=== PATIENT | female | born 1945 | race American Indian/Alaskan Native ===

== ENCOUNTER 2016-11-16 17:22 | Inpatient (IN) | payer MEDICARE, OTHER ==
[2016-11-16] MEDS ORDERED: Piperacillin/Tazobact 3.375 gm 100 ML IV STA (18:20)
[2016-11-16] MEDS ORDERED: Enoxaparin 40 mg Syringe SC STA (18:21)
--- NOTE | 2016-11-16 18:22 | C.PDOC ---
History Of Present Illness 70 year old patient, with a past medical history of hypertension and colonic polyps, presents to the emergency department complaining of left lower leg pain and swelling for the past 3 days. Patient states he struck his left tibia against something. She has noticed erythema spreading since then. Patient denies fever, chills, nausea, or vomiting. Time Seen by Provider: 11/16/16 18:15 Chief Complaint (Nursing): Lower Extremity Problem/Injury History Per: Patient History/Exam Limitations: no limitations Onset/Duration Of Symptoms: Days (3) Current Symptoms Are (Timing): Still Present Severity: Moderate Pain Scale Rating Of: 4 Recent travel outside of the [place]: No Past Medical History Reviewed: Historical Data, Nursing Documentation, Vital Signs Vital Signs: Last Vital Signs Temp 97.9 F 11/16/16 20:02 Pulse 89 11/16/16 20:02 Resp 18 11/16/16 20:02 BP 156/76 H 11/16/16 20:02 Pulse Ox 96 11/16/16 20:02 - Medical History PMH: Asthma (PT STATES THEY ARE TREATING FOR ASBESTOS EXPOSURE), Colonic Polyps , [facility] CLOSED ENDOSCOPIC BIOPSY OF LARGE INTESTINE (11/22/14) ESOPHAGOGASTRODUODENOSCOPY [EGD] W/CLOSED BIOPSY (11/26/14) Family History: States: Unknown Family Hx - Social History Hx Alcohol Use: No Hx Substance Use: No Review Of Systems Except As Marked, All Systems Reviewed And Found Negative. Constitutional: Negative for: Fever, Chills Gastrointestinal: Negative for: Nausea, Vomiting Musculoskeletal: Positive for: Leg Pain (left lower) Physical Exam - Physical Exam Appears: Non-toxic, No Acute Distress Skin: Warm, Dry Head: Atraumatic, Normacephalic Neck: Normal ROM, Supple Chest: Symmetrical Cardiovascular: Rhythm Regular Respiratory: Normal Breath Sounds, No Rales, No Rhonchi, No Wheezing Gastrointestinal/Abdominal: Soft, No Tenderness, Other (morbidly obese) Back: Normal Inspection, No CVA Tenderness Extremity: Normal ROM, No Pedal Edema, No Calf Tenderness, Capillary Refill (<2 seconds), No Deformity, No Swelling, Other (obese lower extremities; small wound to the left anterior tibia mid shaft with spreading erythema to about 20 cm of ankle to below the knee) ED Course And Treatment - Laboratory Results Result Diagrams: 11/16/16 18:25 11/16/16 18:25 Lab Interpretation: Abnormal (+ mild leukocytosis) ECG: Interpreted By Me ECG Rhythm: Sinus Rhythm ECG Interpretation: Normal Rate From EC O2 Sat by Pulse Oximetry: 96 (room air) Pulse Ox Interpretation: Normal - Radiology CXR: Interpreted by Me CXR Interpretation: Yes: No Acute Disease - Other Rad L tib/fib X-Ray: Interpreted by Me (no fb/gas/fx) Progress Note: Plan: -EKG. -Labs. -Chest x-ray. -Lovenox, Toradol, Zosyn. 18:[address] Daniels who is aware of the case and plan. He will admit the patient. Reevaluation Time: 19:00 Reassessment Condition: Improved - Physician Consult Information Outcome Of Conversation: d/w Dr. Daniels @ [phone] Medical Decision Making Medical Decision Making: cellulitis of L lower leg started from small anterior tib wound 3 days ago. no fx/fb/gas empirically started on Zosyn Lovenox 100 SQ given in case of underlying DVT: US in AM Disposition Doctor Will See Patient In The: Hospital Counseled Patient/Family Regarding: Studies Performed, Diagnosis - Disposition Disposition: HOSPITALIZED Disposition Time: 18:22 Condition: GOOD - Clinical Impression Clinical Impression: Cellulitis of leg, left - Scribe Statement The provider has reviewed the documentation as recorded by the Yadira Jo Provider Attestation: All medical record entries made by the Yaniqueibe were at my direction and personally dictated by me. I have reviewed the chart and agree that the record accurately reflects my personal performance of the history, physical exam, medical decision making, and the department course for this patient. I have also personally directed, reviewed, and agree with the discharge instructions and disposition.
[2016-11-16] MEDS ORDERED: Enoxaparin 60 mg Syringe ONE (18:26)
[2016-11-16] MEDS ORDERED: Enoxaparin 40 mg Syringe ONE (18:26)
[2016-11-16] MEDS ORDERED: Piperacillin/Tazobact 3.375 gm 100 ML IVPB ONE (18:27)
[2016-11-16 18:31] LABS: BASO % 0.3 % (0.0-2.0); EOS # 0.7 K/uL (0.0-0.7); EOS % 5.9 % (0.0-4.0); HEMATOCRIT 38.7 % (34.0-47.0); LYMPH # 1.8 K/uL (1.0-4.3); LYMPH % 15.4 % (20.0-40.0); MEAN CORPUSCULAR HGB CONC 31.7 g/dL (33.0-37.0); MEAN PLATELET VOLUME 10.1 fL (7.2-11.7); MONO # 0.9 K/uL (0.0-0.8); RED CELL DISTRIBUTION WIDTH 15.2 % (11.5-14.5); WHITE BLOOD COUNT 11.6 K/uL (4.8-10.8)
[2016-11-16 18:40] LABS: CHLORIDE 105 mmol/L (98-107); POTASSIUM 4.5 mmol/L (3.6-5.2); SODIUM 143 mmol/L (132-148)
[2016-11-16 18:42] LABS: GFR AFRICAN-AMERICAN > 60
[2016-11-16 18:43] LABS: ALB/GLOB RATIO 1.1 (1.0-2.1); ALKALINE PHOSPHATASE 103 U/L (38-126); ALT/SGPT 14 U/L (9-52); AST/SGOT 32 U/L (14-36); BILIRUBIN,TOTAL 0.9 mg/dL (0.2-1.3); BLOOD UREA NITROGEN 19 mg/dL (7-17); CARBON DIOXIDE 29 mmol/L (22-30); GLUCOSE,RANDOM 94 mg/dL (65-105); TOTAL PROTEIN 7.3 g/dL (6.3-8.3)
[2016-11-16 18:44] LABS: CALCIUM 8.3 mg/dl (8.6-10.4)
[2016-11-16 19:04] LABS: INR 1.1
[2016-11-16 23:23] VITALS: BMI 42.9
[2016-11-17] MEDS: Piperacill/Tazo 3.375gm in Dex 3.375 GM/50 ML BAG IVPB SCH ×3 (00:15→13:17)
[2016-11-17] MEDS: Enoxaparin 40 mg Syringe SC SCH (09:54)
[2016-11-17] MEDS: Pantoprazole 40 mg EC Tab PO SCH (09:55)
--- NOTE | 2016-11-17 09:59 | RAD ---
PROCEDURE: Radiographs of the left tibia and fibula. HISTORY: anterior lesion, ? gas/fb COMPARISON: None available. TECHNIQUE: Frontal and lateral views obtained. FINDINGS: BONES: No fracture or destructive lesion. JOINT SPACES: Unremarkable. OTHER FINDINGS: There is subcutaneous edema. No evidence of gas IMPRESSION: Unremarkable radiographs of the left tibia and fibula.
--- NOTE | 2016-11-17 10:00 | RAD ---
PROCEDURE: CHEST RADIOGRAPH, 1 VIEW HISTORY: SOB COMPARISON: None available. FINDINGS: LUNGS: Clear. PLEURA: No pneumothorax or pleural fluid seen. CARDIOVASCULAR: Normal. OSSEOUS STRUCTURES: No significant abnormalities. VISUALIZED UPPER ABDOMEN: Normal. OTHER FINDINGS: None. IMPRESSION: No active disease.
--- NOTE | 2016-11-17 11:42 | CP.PCM.PN ---
Subjective - Date & Time of Evaluation Date of Evaluation: 11/17/16 Time of Evaluation: 09:30 - Subjective Subjective: Medicine Progress Notes Patient seen and examined. Patient states that she feels well today. She came in yesterday for cellulitis after she scraped her tibia on a piece of metal 4 days ago. Since then she noticed that her leg started to become red and painful so she came to the ED. Today the patient states that the cellulitis has already improved since admission. She denies fever, chills, nausea, vomiting, chest pain, shortness of breath and palpitations. Objective - Vital Signs/Intake and Output Vital Signs (last 24 hours): Temp Pulse Resp BP Pulse Ox 97.7 F 78 18 148/77 95 11/17/16 08:00 11/17/16 08:00 11/17/16 08:00 11/17/16 08:00 11/17/16 08:00 - Medications Medications: Current Medications Atenolol (Tenormin) 50 mg PO DAILY [facility] Last Admin: 11/17/16 09:55 Dose: 50 mg Enoxaparin Sodium (Lovenox) 40 mg SC DAILY [facility] Last Admin: 11/17/16 09:54 Dose: 40 mg Piperacillin Sod/Tazobactam Sod (Zosyn 3.375 Gm Iv Premix) 3.375 gm in 50 mls @ 100 mls/hr IVPB Q6H [facility] Last Admin: 11/17/16 05:34 Dose: 100 mls/hr Oxycodone/Acetaminophen (Percocet 5/325 Mg Tab) 1 tab PO Q4H PRN PRN Reason: Pain, moderate (4-7) Stop: 11/19/16 22:31 Pantoprazole Sodium (Protonix Ec Tab) 40 mg PO DAILY [facility] Last Admin: 11/17/16 09:55 Dose: 40 mg - Labs Labs: 11/16/16 18:25 11/16/16 18:25 PT 12.0 SECONDS (9.7-12.2) 11/16/16 18:48 INR 1.1 11/16/16 18:48 APTT 31 SECONDS (21-34) 11/16/16 18:48 - Constitutional Appears: Non-toxic, No Acute Distress - Head Exam Head Exam: ATRAUMATIC, NORMOCEPHALIC - Eye Exam Eye Exam: EOMI, Normal appearance Pupil Exam: NORMAL ACCOMODATION - ENT Exam ENT Exam: Mucous Membranes Moist - Neck Exam Neck Exam: Normal Inspection - Respiratory Exam Respiratory Exam: Clear to Ausculation Bilateral, NORMAL BREATHING PATTERN. absent: Rhonchi, Wheezes, Respiratory Distress - Cardiovascular Exam Cardiovascular Exam: REGULAR RHYTHM, +S1, +S2 - GI/Abdominal Exam GI & Abdominal Exam: Soft, Normal Bowel Sounds - Extremities Exam Extremities Exam: Pedal Edema (bilateral 1+ pitting edema ) Additional comments: Left tibia scab with erythema down to ankle - Neurological Exam Neurological Exam: Alert, Awake, Normal Gait, Oriented x3 - Psychiatric Exam Psychiatric exam: Normal Affect, Normal Mood - Skin Skin Exam: Dry, Intact, Normal Color, Warm Assessment and Plan - Assessment and Plan (Free Text) Assessment: 1. Cellulitis WBC 11.6, afebrile Leg Xray- no acute findings Start IV Zosyn 3.375gm IV q6h Percocet prn pain f/u blood culture f/u dopplers 2. HTN Atenolol 50mg PO daily 3. Prophylactic measures Lovenox 40mg SC daily Protonix 40mg PO daily SCDs contraindicated Management per Dr Gamble
--- NOTE | 2016-11-17 15:51 | CP.PCM.CON ---
History of Present Illness - History of Present Illness History of Present Illness: 70 year old patient, with a past medical history of hypertension and colonic polyps, presents to the emergency department complaining of left lower leg pain and swelling for the past 3 days. Patient states he struck his left tibia against something. She has noticed erythema spreading since then. Patient denies fever, chills, nausea, or vomiting. severe cellulitis left leg swelling ++ - Medical History PMH: Asthma (PT STATES THEY ARE TREATING FOR ASBESTOS EXPOSURE), Colonic Polyps , HTN Past Patient History - Infectious Disease Hx of Infectious Diseases: None - Past Medical History & Family History Past Medical History?: Yes - Past Social History Smoking Status: Former Smoker - CARDIAC Hx Hypertension: Yes - PULMONARY Hx Asthma: Yes (PT STATES THEY ARE TREATING FOR ASBESTOS EXPOSURE) - NEUROLOGICAL Hx Neurological Disorder: No - HEENT Hx HEENT Problems: No - RENAL Hx Chronic Kidney Disease: No - ENDOCRINE/METABOLIC Hx Endocrine Disorders: No - HEMATOLOGICAL/ONCOLOGICAL Hx Blood Disorders: No - INTEGUMENTARY Hx Dermatological Problems: No Hx Cellulitis: Yes (Current admission 11/16/2016) - MUSCULOSKELETAL/RHEUMATOLOGICAL Hx Musculoskeletal Disorders: Yes Hx Back Pain: Yes Hx Falls: No Other/Comment: USES A CANE - GASTROINTESTINAL Hx Gastrointestinal Disorders: Yes - GENITOURINARY/GYNECOLOGICAL Hx Genitourinary Disorders: No - PSYCHIATRIC Hx Substance Use: No - SURGICAL HISTORY Hx Surgeries: Yes Hx Cholecystectomy: Yes (1991) Hx Herniorrhaphy: Yes Hx Hysterectomy: Yes (1990) Other/Comment: GALLBLADDER SURGERY, PARTIAL COLON RESECTION, HERNIA REPAIR - ANESTHESIA Hx Anesthesia: Yes Hx Anesthesia Reactions: No Hx Malignant Hyperthermia: No Meds Allergies/Adverse Reactions: Allergies Allergy/AdvReac Type Severity Reaction Status Date / Time No Known Allergies Allergy Verified 11/16/16 17:57 - Medications Medications: Current Medications Atenolol (Tenormin) 50 mg PO DAILY [facility] Last Admin: 11/17/16 09:55 Dose: 50 mg Enoxaparin Sodium (Lovenox) 40 mg SC DAILY [facility] Last Admin: 11/17/16 09:54 Dose: 40 mg Piperacillin Sod/Tazobactam Sod (Zosyn 3.375 Gm Iv Premix) 3.375 gm in 50 mls @ 100 mls/hr IVPB Q6H [facility] Last Admin: 11/17/16 13:17 Dose: 100 mls/hr Oxycodone/Acetaminophen (Percocet 5/325 Mg Tab) 1 tab PO Q4H PRN PRN Reason: Pain, moderate (4-7) Stop: 11/19/16 22:31 Pantoprazole Sodium (Protonix Ec Tab) 40 mg PO DAILY [facility] Last Admin: 11/17/16 09:55 Dose: 40 mg Results - Vital Signs Recent Vital Signs: Last Vital Signs Temp 97.7 F 11/17/16 08:00 Pulse 78 11/17/16 08:00 Resp 18 11/17/16 08:00 BP 148/77 11/17/16 08:00 Pulse Ox 95 11/17/16 08:00 - Labs Result Diagrams: 11/16/16 18:25 11/16/16 18:25 Labs: Laboratory Results - last 24 hr 11/16/16 11/16/16 11/16/16 18:25 18:25 18:48 WBC 11.6 H RBC 4.71 Hgb 12.3 Hct 38.7 MCV 82.0 MCH 26.0 L MCHC 31.7 L RDW 15.2 H Plt Count 161 MPV 10.1 Neut % (Auto) 70.4 Lymph % (Auto) 15.4 L [place] % (Auto) 8.0 Eos % (Auto) 5.9 H Baso % (Auto) 0.3 Neut # 8.2 H Lymph # 1.8 [place] # 0.9 H Eos # 0.7 Baso # 0.0 PT 12.0 INR 1.1 APTT 31 Sodium 143 Potassium 4.5 Chloride 105 Carbon Dioxide 29 Anion Gap 14 BUN 19 H Creatinine 0.7 Est GFR ( Amer) > 60 Est GFR (Non-Af Amer) > 60 Random Glucose 94 Calcium 8.3 L Total Bilirubin 0.9 AST 32 ALT 14 Alkaline Phosphatase 103 NT-Pro-B Natriuret Pep 70.2 Total Protein 7.3 Albumin 3.7 Globulin 3.5 Albumin/Globulin Ratio 1.1
[2016-11-17] MEDS: Clindamycin 600mg/50ml D5W 600 MG/50 ML VIAL IVPB SCH (17:32)
[2016-11-17] MEDS ORDERED: Alum-Mag Hydrox-Simethicone Susp (30 mL) PO PRN (18:26)
[2016-11-18] MEDS: Clindamycin 600mg/50ml D5W 600 MG/50 ML VIAL IVPB SCH ×3 (00:31→16:22)
[2016-11-18] MEDS: Oxycodone/Acetaminophen 5/325 mg Tab PO PRN (01:01)
[2016-11-18 08:08] LABS: MEAN CELL VOLUME 83.3 fL (81.0-99.0); MEAN CORPUSCULAR HEMOGLOBIN 26.2 pg (27.0-31.0); MEAN CORPUSCULAR HGB CONC 31.5 g/dL (33.0-37.0); MEAN PLATELET VOLUME 9.6 fL (7.2-11.7); RED CELL DISTRIBUTION WIDTH 15.8 % (11.5-14.5)
[2016-11-18 08:33] LABS: CHLORIDE 103 mmol/L (98-107)
[2016-11-18 08:34] LABS: POTASSIUM 3.7 mmol/L (3.6-5.2); SODIUM 142 mmol/L (132-148)
[2016-11-18 08:36] LABS: BILIRUBIN,TOTAL 0.7 mg/dL (0.2-1.3); CARBON DIOXIDE 31 mmol/L (22-30); GFR AFRICAN-AMERICAN > 60
[2016-11-18 08:37] LABS: ALB/GLOB RATIO 1.1 (1.0-2.1); ALKALINE PHOSPHATASE 94 U/L (38-126); ALT/SGPT 20 U/L (9-52); AST/SGOT 17 U/L (14-36); BLOOD UREA NITROGEN 13 mg/dL (7-17); CALCIUM 8.4 mg/dl (8.6-10.4); GLUCOSE,RANDOM 86 mg/dL (65-105); TOTAL PROTEIN 6.8 g/dL (6.3-8.3)
[2016-11-18] MEDS: Pantoprazole 40 mg EC Tab PO SCH (09:32)
[2016-11-18] MEDS: Enoxaparin 40 mg Syringe SC SCH (09:32)
[2016-11-18] MEDS ORDERED: Midazolam 2 MG/2 ML VIAL ONE (12:51)
[2016-11-18] MEDS ORDERED: Lidocaine Hydrochloride 5 ML INJ ONE (12:51)
[2016-11-18] MEDS ORDERED: Propofol 10 mg/ml Inj (20 ML) ONE (12:51)
[2016-11-18] MEDS ORDERED: Lactated Ringer's 1,000 ML IV ONE (13:00)
[2016-11-18] MEDS ORDERED: Bacitracin 500 Units/gm Oint Foilpak UD ONE (13:10)
--- NOTE | 2016-11-18 14:12 | OP ---
PROCEDURE DATE: 11/18/2016 PREOPERATIVE DIAGNOSES: Abscess and cellulitis of the left leg. POSTOPERATIVE DIAGNOSES: Abscess and cellulitis of the left leg. PROCEDURE PERFORMED: Wide and deep excision infected mass of the left leg with drainage of underlyin g abscess, debridement and partial tissue transfer closure. SURGEON: Pedro Huang MD ANESTHESIA: General. ESTIMATED BLOOD LOSS: 30 mL. POSTOPERATIVE CONDITION: Stable. INDICATIONS FOR SURGERY: This is a 70-year-old female with cellulitis of the leg, has developed an a bscess with an overlying infected eschar, who now will undergo debridement and drainage of the absces s. PROCEDURE: The patient was taken to the operating room, placed in the supine position. The left leg was prepped and draped. Elliptical incision was made surrounding the infected eschar and mass, diss ected into the fascia and removed. Bleeding was controlled using the Bovie. The underlying pus was drained and cultured. The wound was irrigated with copious amounts of saline solution. A larger blo od vessel was repaired. A partial tissue transfer closure was performed at the periphery. The centr al portion of the wound was packed open with wet saline gauze. The patient tolerated procedure well, returned to recovery room in stable condition. Pedro Huang MD cc: [id number] TT: 11/18/2016 14:11:52 en
--- NOTE | 2016-11-18 16:26 | CP.PCM.PN ---
Subjective - Date & Time of Evaluation Date of Evaluation: 11/18/16 Time of Evaluation: 09:00 - Subjective Subjective: Medicine Progress Note-Dr. Gamble's Service: Patient seen and examined at bedside this AM. Patient is lying comfortably in bed this AM. She is NPO for wound debridement with Dr. Huang this AM. She has no fevers, chills, nausea, vomiting. She feels some numbness and tingling over left UE and is not sure if she just slept on it. Reports bilateral shoulder pain. No chest pain, SOB, headache, arm pain. No acute events overnight. EKG done at the time for symptoms showed sinus gabby 58 bpm. Patient seen during rounds with Dr. Walter. Objective - Vital Signs/Intake and Output Vital Signs (last 24 hours): Temp Pulse Resp BP Pulse Ox 97.5 F L 56 L 23 163/62 H 98 11/18/16 14:15 11/18/16 14:15 11/18/16 14:15 11/18/16 14:15 11/18/16 14:15 Intake and Output: 11/18/16 11/18/16 06:59 18:59 Intake Total 450 Balance 450 - Medications Medications: Current Medications Al Hydrox/Mg Hydrox/Simethicone (Maalox Plus 30 Ml) 30 ml PO Q12H PRN PRN Reason: Indigestion / Heartburn Atenolol (Tenormin) 50 mg PO DAILY [facility] Last Admin: 11/18/16 09:51 Dose: 50 mg Enoxaparin Sodium (Lovenox) 40 mg SC DAILY [facility] Last Admin: 11/18/16 09:32 Dose: Not Given Clindamycin Phosphate (Cleocin) 600 mg in 50 mls @ 100 mls/hr IVPB Q8H [facility] Last Admin: 11/18/16 08:18 Dose: 100 mls/hr Oxycodone/Acetaminophen (Percocet 5/325 Mg Tab) 1 tab PO Q4H PRN PRN Reason: Pain, moderate (4-7) Stop: 11/19/16 22:31 Last Admin: 11/18/16 01:01 Dose: 1 tab Pantoprazole Sodium (Protonix Ec Tab) 40 mg PO DAILY [facility] Last Admin: 11/18/16 09:32 Dose: Not Given - Labs Labs: PT 12.0 SECONDS (9.7-12.2) 11/16/16 18:48 INR 1.1 11/16/16 18:48 APTT 31 SECONDS (21-34) 11/16/16 18:48 - Constitutional Appears: No Acute Distress - Head Exam Head Exam: NORMAL INSPECTION - Eye Exam Eye Exam: EOMI, Normal appearance - ENT Exam ENT Exam: Mucous Membranes Moist - Neck Exam Neck Exam: Full ROM - Respiratory Exam Respiratory Exam: Clear to Ausculation Bilateral, NORMAL BREATHING PATTERN - Cardiovascular Exam Cardiovascular Exam: REGULAR RHYTHM, +S1, +S2 - GI/Abdominal Exam GI & Abdominal Exam: Soft. absent: Distended, Tenderness - Extremities Exam Extremities Exam: Pedal Edema, Tenderness - Neurological Exam Neurological Exam: Alert, Awake, Oriented x3 - Psychiatric Exam Psychiatric exam: Normal Affect, Normal Mood - Skin Skin Exam: Normal Color, Warm Additional comments: +black eschar on left cano with surrounding erythema, warmth and tenderness Assessment and Plan (1) Cellulitis of leg, left Assessment & Plan: 1. Left Lower Extremity Cellulitis WBC 8.0, afebrile Dr. Huang- Surgery consult- help appreciated. Patient to OR today for !&D with Dr. Huang. Leg Xray- no acute findings ID consult placed- Dr. Zuleta- help appreciated. Patient on IVPB Cleocin. Percocet prn pain Blood culture negative X 24H f/u venous dopplers 2. HTN Atenolol 50mg PO daily 3. Prophylactic measures Lovenox 40mg SC daily Protonix 40mg PO daily SCDs contraindicated Management per Dr Gamble Status: Acute
--- NOTE | 2016-11-18 18:16 | CP.PCM.PN ---
Subjective - Date & Time of Evaluation Date of Evaluation: 11/18/16 Time of Evaluation: 08:00 - Subjective Subjective: iv rx in progress for or in am Objective - Vital Signs/Intake and Output Vital Signs (last 24 hours): Temp Pulse Resp BP Pulse Ox 97.4 F L 59 L 20 163/79 H 99 11/18/16 16:00 11/18/16 16:00 11/18/16 16:00 11/18/16 16:00 11/18/16 16:00 Intake and Output: 11/18/16 11/18/16 06:59 18:59 Intake Total 450 Balance 450 - Medications Medications: Current Medications Al Hydrox/Mg Hydrox/Simethicone (Maalox Plus 30 Ml) 30 ml PO Q12H PRN PRN Reason: Indigestion / Heartburn Atenolol (Tenormin) 50 mg PO DAILY [facility] Last Admin: 11/18/16 09:51 Dose: 50 mg Enoxaparin Sodium (Lovenox) 40 mg SC DAILY [facility] Last Admin: 11/18/16 09:32 Dose: Not Given Clindamycin Phosphate (Cleocin) 600 mg in 50 mls @ 100 mls/hr IVPB Q8H [facility] Last Admin: 11/18/16 16:22 Dose: 100 mls/hr Oxycodone/Acetaminophen (Percocet 5/325 Mg Tab) 1 tab PO Q4H PRN PRN Reason: Pain, moderate (4-7) Stop: 11/19/16 22:31 Last Admin: 11/18/16 01:01 Dose: 1 tab Pantoprazole Sodium (Protonix Ec Tab) 40 mg PO DAILY [facility] Last Admin: 11/18/16 09:32 Dose: Not Given - Labs Labs: PT 12.0 SECONDS (9.7-12.2) 11/16/16 18:48 INR 1.1 11/16/16 18:48 APTT 31 SECONDS (21-34) 11/16/16 18:48 - Constitutional Appears: Non-toxic, Cachectic, Chronically Ill - Head Exam Head Exam: NORMOCEPHALIC - Eye Exam Eye Exam: PERRL. absent: Scleral icterus - ENT Exam ENT Exam: Mucous Membranes Dry, Normal External Ear Exam - Neck Exam Neck Exam: absent: Lymphadenopathy - Respiratory Exam Respiratory Exam: Decreased Breath Sounds, Rhonchi - Cardiovascular Exam Cardiovascular Exam: REGULAR RHYTHM, +S1, +S2 - GI/Abdominal Exam GI & Abdominal Exam: Distended, Soft. absent: Tenderness - Rectal Exam Rectal Exam: Deferred Assessment and Plan (1) Cellulitis of leg, left Status: Acute - Assessment and Plan (Free Text) Assessment: fo rI and D
[2016-11-19] MEDS: Clindamycin 600mg/50ml D5W 600 MG/50 ML VIAL IVPB SCH ×3 (00:06→17:22)
[2016-11-19] MEDS: Oxycodone/Acetaminophen 5/325 mg Tab PO PRN (00:13)
--- NOTE | 2016-11-19 07:11 | HP ---
The patient is admitted to the hospital with complaint of pain and swelling of the lower extremity, l eft more than the right. The patient ____ actually had ____ in the back yard. The patient ____ hype rtension. PHYSICAL EXAMINATION: GENERAL: The patient is awake, alert and oriented. VITAL SIGNS: Temperature 98, pulse 90. HEENT: Within normal limits. NECK: Supple. CHEST: Symmetrical. HEART: Regular. ABDOMEN: Soft. EXTREMITIES: No edema. The patient suffers from ____ cellulitis ____ distal left lower extremity with redness and tenderness present. The patient suffers from cellulitis of the lower extremity. The patient will be given ant ibiotic, supportive care. Chacorta Min MD cc: [id number] TT: 11/17/2016 11:09:26 mn
[2016-11-19 08:01] VITALS: RESP 20
[2016-11-19 08:35] LABS: HEMATOCRIT 43.2 % (34.0-47.0); MEAN CELL VOLUME 83.5 fL (81.0-99.0); MEAN CORPUSCULAR HEMOGLOBIN 26.6 pg (27.0-31.0); MEAN CORPUSCULAR HGB CONC 31.8 g/dL (33.0-37.0); MEAN PLATELET VOLUME 9.8 fL (7.2-11.7); RED CELL DISTRIBUTION WIDTH 15.5 % (11.5-14.5); WHITE BLOOD COUNT 10.4 K/uL (4.8-10.8)
[2016-11-19 09:08] LABS: CHLORIDE 101 mmol/L (98-107); POTASSIUM 4.5 mmol/L (3.6-5.2); SODIUM 140 mmol/L (132-148)
[2016-11-19 09:10] LABS: ALB/GLOB RATIO 1.1 (1.0-2.1); AST/SGOT 22 U/L (14-36); BILIRUBIN,TOTAL 0.7 mg/dL (0.2-1.3); CARBON DIOXIDE 30 mmol/L (22-30); GFR AFRICAN-AMERICAN > 60
[2016-11-19 09:11] LABS: ALKALINE PHOSPHATASE 95 U/L (38-126); ALT/SGPT < 6 U/L (9-52); BLOOD UREA NITROGEN 17 mg/dL (7-17); CALCIUM 8.4 mg/dl (8.6-10.4); GLUCOSE,RANDOM 93 mg/dL (65-105)
[2016-11-19] MEDS: Enoxaparin 40 mg Syringe SC SCH (11:22)
--- NOTE | 2016-11-19 11:26 | CP.PCM.PN ---
Subjective - Date & Time of Evaluation Date of Evaluation: 11/19/16 Time of Evaluation: 08:00 - Subjective Subjective: Medicine Progress Note- Dr. Gamble's Service: Patient seen and examined at bedside this AM. Patient reports she is feeling much better. Patient is POD#1 s/p I&D. She reports no fevers, chills, nausea, vomiting, chest pain, SOB. No other complaints at this time. Objective - Vital Signs/Intake and Output Vital Signs (last 24 hours): Temp Pulse Resp BP Pulse Ox 97.5 F L 67 20 130/58 L 94 L 11/19/16 07:00 11/19/16 07:00 11/19/16 07:00 11/19/16 07:00 11/19/16 07:00 - Medications Medications: Current Medications Al Hydrox/Mg Hydrox/Simethicone (Maalox Plus 30 Ml) 30 ml PO Q12H PRN PRN Reason: Indigestion / Heartburn Last Admin: 11/19/16 00:13 Dose: 30 ml Atenolol (Tenormin) 50 mg PO DAILY [facility] Last Admin: 11/18/16 09:51 Dose: 50 mg Enoxaparin Sodium (Lovenox) 40 mg SC DAILY [facility] Last Admin: 11/18/16 09:32 Dose: Not Given Clindamycin Phosphate (Cleocin) 600 mg in 50 mls @ 100 mls/hr IVPB Q8H [facility] Last Admin: 11/19/16 08:13 Dose: 100 mls/hr Oxycodone/Acetaminophen (Percocet 5/325 Mg Tab) 1 tab PO Q4H PRN PRN Reason: Pain, moderate (4-7) Stop: 11/19/16 22:31 Last Admin: 11/19/16 00:13 Dose: 1 tab Pantoprazole Sodium (Protonix Ec Tab) 40 mg PO DAILY [facility] Last Admin: 11/18/16 09:32 Dose: Not Given - Labs Labs: 11/19/16 08:26 11/19/16 08:26 PT 12.0 SECONDS (9.7-12.2) 11/16/16 18:48 INR 1.1 11/16/16 18:48 APTT 31 SECONDS (21-34) 11/16/16 18:48 - Constitutional Appears: No Acute Distress - Head Exam Head Exam: NORMAL INSPECTION, NORMOCEPHALIC - Eye Exam Eye Exam: EOMI, Normal appearance - ENT Exam ENT Exam: Mucous Membranes Moist - Respiratory Exam Respiratory Exam: Clear to Ausculation Bilateral, Wheezes - Cardiovascular Exam Cardiovascular Exam: REGULAR RHYTHM, +S1, +S2 - GI/Abdominal Exam GI & Abdominal Exam: Soft. absent: Distended, Tenderness - Extremities Exam Extremities Exam: Full ROM, Normal Inspection, Tenderness (over left cano ). absent: Pedal Edema - Neurological Exam Neurological Exam: Alert, Awake, Oriented x3 - Psychiatric Exam Psychiatric exam: Normal Affect, Normal Mood - Skin Skin Exam: Dry, Normal Color, Warm Additional comments: dressing over left anterior cano- c/d/i Assessment and Plan - Assessment and Plan (Free Text) Assessment: (1) Cellulitis of leg, left Assessment & Plan: 1. Left Lower Extremity Cellulitis WBC 8.0, afebrile Dr. Huang- Surgery consult- help appreciated. Patient POD#1 s/p I&D with Dr. Huang. Leg Xray- no acute findings ID consult placed- Dr. Zuleta- help appreciated. Patient prescribed Cleocin 300mg PO Q8H for 7 days. Blood culture negative X 48 venous dopplers- negative 2. HTN Atenolol 50mg PO daily Discharge planning as per Dr Gamble
[2016-11-19] MEDS: Pantoprazole 40 mg EC Tab PO SCH (11:32)
--- NOTE | 2016-11-19 15:46 | CP.PCM.PN ---
Subjective - Date & Time of Evaluation Date of Evaluation: 11/19/16 Time of Evaluation: 09:00 - Subjective Subjective: cellulitis less iv rx in progress cont po Objective - Vital Signs/Intake and Output Vital Signs (last 24 hours): Temp Pulse Resp BP Pulse Ox 97.5 F L 67 20 130/58 L 94 L 11/19/16 07:00 11/19/16 07:00 11/19/16 07:00 11/19/16 07:00 11/19/16 07:00 Intake and Output: 11/19/16 11/19/16 06:59 18:59 Intake Total 450 Balance 450 - Medications Medications: Current Medications Al Hydrox/Mg Hydrox/Simethicone (Maalox Plus 30 Ml) 30 ml PO Q12H PRN PRN Reason: Indigestion / Heartburn Last Admin: 11/19/16 00:13 Dose: 30 ml Atenolol (Tenormin) 50 mg PO DAILY [facility] Last Admin: 11/19/16 11:23 Dose: 50 mg Enoxaparin Sodium (Lovenox) 40 mg SC DAILY [facility] Last Admin: 11/19/16 11:22 Dose: 40 mg Clindamycin Phosphate (Cleocin) 600 mg in 50 mls @ 100 mls/hr IVPB Q8H [facility] Last Admin: 11/19/16 08:13 Dose: 100 mls/hr Oxycodone/Acetaminophen (Percocet 5/325 Mg Tab) 1 tab PO Q4H PRN PRN Reason: Pain, moderate (4-7) Stop: 11/19/16 22:31 Last Admin: 11/19/16 00:13 Dose: 1 tab Pantoprazole Sodium (Protonix Ec Tab) 40 mg PO DAILY [facility] Last Admin: 11/19/16 11:32 Dose: 40 mg - Labs Labs: 11/19/16 08:26 11/19/16 08:26 PT 12.0 SECONDS (9.7-12.2) 11/16/16 18:48 INR 1.1 11/16/16 18:48 APTT 31 SECONDS (21-34) 11/16/16 18:48 - Constitutional Appears: Non-toxic, Chronically Ill - Head Exam Head Exam: NORMOCEPHALIC - Eye Exam Eye Exam: PERRL. absent: Scleral icterus - ENT Exam ENT Exam: Mucous Membranes Dry - Neck Exam Neck Exam: absent: Lymphadenopathy - Respiratory Exam Respiratory Exam: Decreased Breath Sounds, Clear to Ausculation Bilateral - Cardiovascular Exam Cardiovascular Exam: REGULAR RHYTHM, +S1, +S2 - GI/Abdominal Exam GI & Abdominal Exam: Distended, Soft. absent: Tenderness - Rectal Exam Rectal Exam: Deferred - Exam Exam: NORMAL INSPECTION Assessment and Plan (1) Cellulitis of leg, left Status: Acute - Assessment and Plan (Free Text) Plan: ok to d/c on po
[2016-11-19 16:49] VITALS: BP 129/73; PULSE 62; TEMP 98.7; O2SAT 96
--- NOTE | 2016-11-19 19:20 | VASCLAB ---
PROCEDURE: Left Lower Extremity Venous Duplex Exam. HISTORY: LLE swelling. PRIORS: None. TECHNIQUE: Left common femoral, femoral, popliteal and posterior tibial, peroneal and great saphenous veins were evaluated. Flow was assessed with color Doppler, compressibility, assessment of phasic flow and augmentation response. Report prepared by DION Luciano, RVT FINDINGS: LEFT: 1. Common Femoral Vein: 1.1. Compressibility - Fully compressible: Thrombus - None : Flow - Phasic: Augmentation -Normal: Reflux - None. 2. Femoral Vein: 2.1. Compressibility - Fully compressible: Thrombus - None: Flow - Phasic: Augmentation -Normal: Reflux - None. 3. Popliteal Vein: 3.1. Compressibility - Fully compressible: Thrombus - None: Flow - Phasic: Augmentation -Normal: Reflux - None. 4. Posterior Tibial Vein: 4.1. Compressibility - Fully compressible: Thrombus - None: Flow - Phasic: Augmentation -Normal: Reflux - None. 5. Peroneal Vein: 5.1. Compressibility - Fully compressible: Thrombus - None: Flow - Phasic: Augmentation -Normal: Reflux - None. 6. Great Saphenous Vein: 6.1. Compressibility - Fully compressible: Thrombus - None: Flow - Phasic: Augmentation - Normal: Reflux - None. OTHER FINDINGS: IMPRESSION: No evidence of deep or superficial vein thrombosis of the left lower extremity with excellent venous flow. Normal valve function noted of the left side. Normal venous flow noted in the right common femoral vein.
--- NOTE | 2016-12-03 11:03 | CARD ---
APPROVED REPORT EKG Measurement Heart [id number] [place] [id number] <Conclusion> Normal sinus rhythm Moderate voltage criteria for LVH, may be normal variant Borderline ECG
--- NOTE | 2017-01-03 20:52 | CARD ---
APPROVED REPORT EKG Measurement Heart [id number] <Conclusion> Sinus bradycardia Possible Left atrial enlargement Borderline ECG
== END 2016-11-19 20:10 | disposition home or self-care (01) | DRG 575 ==
LOC: C.ER 17:22 → C.9E 18:23 → C.5T 18:51 → OBSVTOIN 11-18 14:50
PROVIDERS: ADMIT Internal Medicine Pulmonary Disease; ATTEND Internal Medicine Pulmonary Disease
PROC: 0HXLXZZ Transfer Left Lower Leg Skin, External Approach (ICD-10-PCS; 2016-11-18)
PROC: 0H9LXZZ Drainage of Left Lower Leg Skin, External Approach (ICD-10-PCS; principal; 2016-11-18 12:45)
DX: L03.116 Cellulitis of left lower limb (principal); S81.802A Unspecified open wound, left lower leg, initial encounter; I10 Essential (primary) hypertension; J45.909 Unspecified asthma, uncomplicated; X58.XXXA Exposure to other specified factors, initial encounter

== ENCOUNTER 2016-12-31 13:56 | Emergency (ER) | payer MEDICARE ==
[2016-12-31 13:57] VITALS: BMI 42.9
[2016-12-31 14:22] VITALS: BP 136/74; PULSE 66; RESP 16; TEMP 98.1; O2SAT 95
--- NOTE | 2016-12-31 14:53 | C.PDOC ---
History Of Present Illness 71 y/o female presents to ED with complaints of non healing ulcer to right cano and to make sure wound was healing correctly. In early November patient was seen and hospitalized for cellulitis to leg and given a debriedment by Dr. Huang. Patient was also seen by Dr. Zuleta for infectious disease. Patient denies chills, pain, drainage or any other complaints at this time. Time Seen by Provider: 12/31/16 14:29 Chief Complaint (Nursing): Abnormal Skin Integrity History Per: Patient History/Exam Limitations: no limitations Onset/Duration Of Symptoms: Days Current Symptoms Are (Timing): Still Present Location Of Injury: Right: Leg, Anterior: Leg Past Medical History Reviewed: Historical Data, Nursing Documentation, Vital Signs Vital Signs: Last Vital Signs Temp 98.1 F 12/31/16 14:21 Pulse 66 12/31/16 14:21 Resp 16 12/31/16 14:21 BP 136/74 12/31/16 14:21 Pulse Ox 95 12/31/16 18:42 - Medical History PMH: Asthma (PT STATES THEY ARE TREATING FOR ASBESTOS EXPOSURE), Colonic Polyps , HTN Surgical History: Cholecystectomy (1991) - [facility] Procedures CLOSED ENDOSCOPIC BIOPSY OF LARGE INTESTINE (11/22/14) DRAINAGE OF LEFT LOWER LEG SKIN, EXTERNAL APPROACH (11/18/16) ESOPHAGOGASTRODUODENOSCOPY [EGD] W/CLOSED BIOPSY (11/26/14) TRANSFER LEFT LOWER LEG SKIN, EXTERNAL APPROACH (11/18/16) Family History: States: Unknown Family Hx - Social History Hx Alcohol Use: No Hx Substance Use: No Review Of Systems Except As Marked, All Systems Reviewed And Found Negative. Constitutional: Negative for: Fever, Chills Eyes: Negative for: Vision Change Respiratory: Negative for: Shortness of Breath Gastrointestinal: Negative for: Nausea, Vomiting, Diarrhea Musculoskeletal: Negative for: Leg Pain Neurological: Negative for: Headache Physical Exam - Physical Exam Appears: Non-toxic, No Acute Distress Skin: Normal Color, Warm Head: Atraumatic, Normacephalic Eye(s): bilateral: Normal Inspection Oral Mucosa: Moist Neck: Normal ROM Chest: Symmetrical Gastrointestinal/Abdominal: Other (Morbidly Obese) Extremity: Pedal Edema (Distal), Capillary Refill (<2 seconds), Other (Small Ulcer w/mild erythema surrounding, no drainage) Neurological/Psych: Oriented x3, Normal Motor, Normal Sensation, Normal Reflexes ED Course And Treatment O2 Sat by Pulse Oximetry: 95 (RA) Pulse Ox Interpretation: Normal Medical Decision Making Medical Decision Making: Case discussed with who advised patient to continue Medication currently taking and follow up with surgeon. 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 MD/DO has examined the patient and agrees with the treatment plan. - Scribe Statement The provider has reviewed the documentation as recorded by the Yaniqueibarthur Kelly All medical record entries made by the Yaniqueibarthur were at my direction and personally dictated by me. I have reviewed the chart and agree that the record accurately reflects my personal performance of the history, physical exam, medical decision making, and the department course for this patient. I have also personally directed, reviewed, and agree with the discharge instructions and disposition.
== END 2016-12-31 15:13 | disposition home or self-care (01) ==
LOC: C.ER 13:56
DX: L97.819 Non-pressure chronic ulcer of other part of right lower leg with unspecified severity (principal)